=== PATIENT | male | born 1965 | race Caucasian/White ===

== ENCOUNTER 2017-06-03 12:19 | Outpatient (CLI) | payer OTHER ==
--- NOTE | 2017-06-03 14:26 | Ultrasound Report ---
CAROTID DUPLEX: 06/03/2017 CLINICAL INDICATION: Dizziness. TECHNIQUE: Real-time sonographic vascular imaging was performed by the sap bobj developer through the carotid arteries utilizing both color-flow and Doppler spectral analysis. Multiple electroplating sales representative static images were saved for review. Vessel PSV cm/sec 2D Plaque Estimate % EDV cm/sec ICA/CCA PSV % Stenosis RCCA Prox 117 -- RCCA Dist 83 31 -- RECA 129 -- RT BULB 69 -- 27 0.8 MAYELA Prox 79 -- 29 0.95 MAYELA Mid 79 -- 32 0.95 MAYELA Dist 99 -- 37 1.2 RVA 35 RVA flow direction: Antegrade. Vessel PSV cm/sec 2D Plaque Estimate % EDV cm/sec ICA/CCA PSV % Stenosis LCCA Prox 109 -- LCCA Dist 107 46 -- LECA 145 -- LFT BULB 88 -- 33 0.8 LICA Prox 99 -- 26 0.9 LICA Mid 101 -- 48 0.9 LICA Dist 76 -- 32 0.7 LVA 41 LVA flow direction: Antegrade. Velocity criteria are extrapolated from diameter data as defined by the Society of Radiologists in Ultrasound Consensus Conference Radiology 2003; 229; 340-346. Degree of Stenosis % ICA PSV cm/sec Plaque Estimate % ICA/CCA RSV Ratio ICA EDV cm/sec Normal < 125 None < 2.0 < 40 <50 < 125 < 50 < 2.0 < 40 50-69 125 - 130 >/= 50 2.0 - 4.0 40 - 100 >/= 70 but less than near occlusion > 230 >/= 50 > 4.0 > 100 Near occlusion High, low, or undetectable Visible lumen Variable Variable Total occlusion Undetectable No detectable lumen Not applicable Not applicable FINDINGS RIGHT: There is no significant plaquing in the right common or internal carotid artery. No hemodynamically significant stenosis is seen. LEFT: There is minimal plaquing in the left carotid bifurcation, without evidence of a focal hemodynamically significant carotid stenosis. The vertebral arteries demonstrate antegrade flow bilaterally. IMPRESSION: MINIMAL LEFT PLAQUING. NO EVIDENCE OF A HEMODYNAMICALLY SIGNIFICANT CAROTID STENOSIS. MTDD
== END 2017-06-03 12:20 | disposition home or self-care (01) ==
LOC: DI 12:19
PROVIDERS: ATTEND Physician Assistant Medical
DX: R42 Dizziness and giddiness (principal)
CPT/HCPCS: 93880

== ENCOUNTER 2017-06-16 07:13 | Outpatient (CLI) | payer OTHER ==
--- NOTE | 2017-06-16 09:55 | Ultrasound Report ---
RIGHT UPPER QUADRANT ULTRASOUND: 06/16/2017 CLINICAL INDICATION: Abnormal LFTs. TECHNIQUE: Real-time scanning was performed with equal opportunity representative static images obtained. FINDINGS: The liver measures 18.8 cm. Hepatic echogenicity is increased, compatible with fatty infi ltration, with a region of fatty sparing adjacent to the portal vein. No suspicious hepatic lesion o r intrahepatic biliary dilatation is present. The common bile duct measures 5 mm. The gallbladder i s normal. The right kidney measures 11.4 cm, and demonstrates no hydronephrosis. No free fluid is p resent. IMPRESSION: FATTY INFILTRATION OF THE LIVER. NO EVIDENCE OF CHOLELITHIASIS OR BILIARY DILATATION. JOB #: [id number] JOB #:[id number]
== END 2017-06-16 07:14 | disposition home or self-care (01) ==
LOC: DI 07:13
PROVIDERS: ATTEND Physician Assistant Medical
DX: K76.0 Fatty (change of) liver, not elsewhere classified (principal)
CPT/HCPCS: 76705